=== PATIENT | female | born 1995 | race Caucasian/White ===

== ENCOUNTER → 2022-12-26 | Outpatient (CLI) | payer OTHER ==
[2022-12-26 19:06] LABS: GC DNA AMPLIFICATION NEGATIVE (NEGATIVE)
[2022-12-26 19:15] LABS: HEMATOCRIT 37.6 % (36.0-47.0); HEMOGLOBIN 12.3 g/dl (12.0-15.5); MEAN CORPUSCULAR HEMOGLOBIN 30.2 pg (27.0-33.0); MEAN CORPUSCULAR HGB CONC 32.7 g/dl (32.0-36.5); MEAN CORPUSCULAR VOLUME 92.4 fl (80.0-96.0); PLATELET COUNT, AUTOMATED 308 10^3/uL (150-450); RED BLOOD COUNT 4.07 10^6/uL (4.00-5.40); WHITE BLOOD COUNT 9.8 10^3/uL (4.0-10.0)
[2022-12-26 20:02] LABS: HIV 1&2 SCREEN NEGATIVE (NEGATIVE)
[2022-12-26 20:08] LABS: HEPATITIS C VIRUS ABY INDEX 0.11 INDEX (<0.8)
== END ==
LOC: M PLALAB 14:28
PROVIDERS: ATTEND Advanced Practice Midwife
DX: Z34.02 Encounter for supervision of normal first pregnancy, second trimester (principal)

== ENCOUNTER → 2022-12-27 | Outpatient (CLI) | payer OTHER | LOC: M WHC 12:41 | PROVIDERS: ATTEND Advanced Practice Midwife | DX: Z34.02 Encounter for supervision of normal first pregnancy, second trimester (principal); Z3A.22 22 weeks gestation of pregnancy ==

== ENCOUNTER → 2023-02-12 | Outpatient (CLI) | payer OTHER ==
[2023-02-12 15:57] LABS: HEMATOCRIT 34.4 % (36.0-47.0); HEMOGLOBIN 11.2 g/dl (12.0-15.5); MEAN CORPUSCULAR HEMOGLOBIN 30.4 pg (27.0-33.0); MEAN CORPUSCULAR HGB CONC 32.6 g/dl (32.0-36.5); MEAN CORPUSCULAR VOLUME 93.2 fl (80.0-96.0); PLATELET COUNT, AUTOMATED 262 10^3/uL (150-450); RED BLOOD COUNT 3.69 10^6/uL (4.00-5.40); WHITE BLOOD COUNT 8.3 10^3/uL (4.0-10.0)
== END ==
LOC: M PLALAB 10:50
PROVIDERS: ATTEND Advanced Practice Midwife
DX: Z34.02 Encounter for supervision of normal first pregnancy, second trimester (principal); Z3A.00 Weeks of gestation of pregnancy not specified
CPT/HCPCS: 36415; 82950; 85027; 86850; 86900; 86901; J2790

== ENCOUNTER → 2023-04-04 | Outpatient (REF) | payer MEDICAID, OTHER | LOC: M PLALAB 14:39 | PROVIDERS: ATTEND Obstetrics & Gynecology | DX: Z36.85 Encounter for antenatal screening for Streptococcus B (principal) ==

== ENCOUNTER 2023-04-27 01:18 | Inpatient (IN) | payer OTHER, MEDICAID ==
[2023-04-27] VITALS (38 sets, daily range): BP systolic 97–131; BP diastolic 55–88; O2SAT 97
[~2023-04-27] VITALS: Ht 162.6 cm; Wt 91.4 kg
[2023-04-27] MEDS ORDERED: PRENTAB9 PO (01:36)
[2023-04-27] MEDS ORDERED: HOME MED LIST COMPLETE! XX SCH (01:40)
[2023-04-27] MEDS ORDERED: BUTORPHANOL 2 MG/ML 1ML VIAL IV ONE (06:00)
[2023-04-27] MEDS ORDERED: LACTATED RINGER'S 1000 ML IV STA (06:14)
[2023-04-27] MEDS ORDERED: LIDOCAINE 1% MDV 20ML VIAL INFIL PRN (06:15)
[2023-04-27] MEDS ORDERED: OXYTOCIN DRIP 30 UNITS in IV 1 EA IV PRN (06:15)
[2023-04-27] MEDS ORDERED: LR 1,000 ML IV SCH (06:15)
[2023-04-27] MEDS ORDERED: CARBOPROST TROMETHAMINE 250 MCG/ML AMP IM PRN (06:15)
[2023-04-27] MEDS ORDERED: METHYLERGONOVINE MALEATE 0.2MG/ML 1ML VIAL IM PRN (06:15)
[2023-04-27] MEDS ORDERED: TRANEXAMIC ACID INJection 1,000 MG in NS 100 ML IV PRN (06:15)
[2023-04-27 06:42] LABS: HEMATOCRIT 35.3 % (36.0-47.0); MEAN CORPUSCULAR HEMOGLOBIN 30.8 pg (27.0-33.0); MEAN CORPUSCULAR VOLUME 90.5 fl (80.0-96.0); PLATELET COUNT, AUTOMATED 282 10^3/uL (150-450); WHITE BLOOD COUNT 14.7 10^3/uL (4.0-10.0)
[2023-04-27] MEDS ORDERED: EPIDURAL/PCA KEYS XX PRN (07:05)
[2023-04-27] MEDS ORDERED: FENTANYL/ROPIVACAINE/NACL BAG 100 ML EPIDURAL SCH (07:05)
[2023-04-27] MEDS ORDERED: diphenhydrAMINE 50MG/ML VIAL IV PRN (07:05)
[2023-04-27] MEDS ORDERED: ONDANSETRON 4MG 2ML VIAL IV ONE (07:05)
[2023-04-27] MEDS ORDERED: LR 500 ML IV PRN (07:05)
[2023-04-27] MEDS ORDERED: NALOXONE INJ 0.4MG/1ML VIAL IV PRN (07:05)
[2023-04-27] MEDS ORDERED: ONDANSETRON 4MG 2ML VIAL IV PRN (07:05)
[2023-04-27 07:15] LABS: URIC ACID 4.4 MG/DL (3.1-7.8)
[2023-04-27 07:17] LABS: LDH LACTATE DEHYDROGENASE 167 U/L (120-246)
[2023-04-27 07:18] LABS: ALT/SGPT 24 U/L (7.0-40); AST/SGOT 20 U/L (<34); BILIRUBIN,TOTAL 0.3 MG/DL (0.3-1.2); CREATININE FOR GFR 0.62 MG/DL (0.55-1.30); GLOMERULAR FILTRATION RATE > 60.0 (>60)
[2023-04-27] MEDS: ePHEDrine SULFATE 25 MG/5 ML(5MG/ML) SYRINGE IVP PRN ×2 (09:06→09:37)
[2023-04-27] MEDS ORDERED: METHYLERGONOVINE MALEATE 0.2 MG TAB PO PRN (15:45)
[2023-04-27] MEDS ORDERED: DOCUSATE SODIUM 100MG CAPSULE PO PRN (15:45)
[2023-04-27] MEDS ORDERED: ANUSOL HC CREAM 30GM TOP PRN (15:45)
[2023-04-27] MEDS ORDERED: RHOGAM 300MCG (1500IU) INJ IM SCH (15:45)
[2023-04-27] MEDS ORDERED: DIBUCAINE 1% OINTMENT 30GM TOP PRN (15:45)
[2023-04-27] MEDS ORDERED: IBUPROFEN 600MG TAB PO PRN (15:45)
[2023-04-27] MEDS ORDERED: ACETAMINOPHEN TAB 650MG DOSE (2X325MG) PO PRN (15:45)
[2023-04-27] MEDS: IBUPROFEN 800 MG TAB PO PRN (18:13)
[2023-04-28] MEDS: ACETAMINOPHEN 500 MG TAB PO PRN ×2 (00:28→19:38)
[2023-04-28 06:00] VITALS: BP 129/71
[2023-04-28] MEDS: PRENATAL VITAMINS CHEWABLE TABLET PO SCH (10:21)
[2023-04-28] MEDS: IBUPROFEN 800 MG TAB PO PRN (17:36)
[2023-04-29 06:00] VITALS: BP 114/62
[2023-04-29] MEDS ORDERED: MEASLES,MUMPS,RUBELLA VACCINE INJ (MMR-II) SC.IMMUN ONE (09:00)
[2023-04-29] MEDS: PRENATAL VITAMINS CHEWABLE TABLET PO SCH (09:19)
== END 2023-04-29 13:03 | disposition home or self-care (01) | DRG 560 ==
LOC: M LDO 01:18 → M LDI 07:08 → M OBS 16:50
PROVIDERS: ADMIT Advanced Practice Midwife; ATTEND Advanced Practice Midwife
PROC: 10E0XZZ Delivery of Products of Conception, External Approach (ICD-10-PCS; principal; 2023-04-27)
PROC: 0KQM0ZZ Repair Perineum Muscle, Open Approach (ICD-10-PCS; 2023-04-27)
DX: O70.1 Second degree perineal laceration during delivery (principal); Z37.0 Single live birth; Z3A.39 39 weeks gestation of pregnancy

== ENCOUNTER → 2023-08-28 | Outpatient (REF) | payer OTHER, MEDICAID ==
[~2023-08-28] MED LIST: PRENTAB9 PO
== END ==
LOC: M SFHCWAGY 17:43
PROVIDERS: ATTEND Advanced Practice Midwife
DX: Z12.4 Encounter for screening for malignant neoplasm of cervix (principal)